=== PATIENT | female | born 1940 | race Caucasian/White ===

== ENCOUNTER 2018-05-15 03:19 | Outpatient (CLI) | payer MEDICARE ==
[~2018-05-15 03:19] MED LIST: ATOR10TA87 PO; CALC-103; CLIN300C85 PO; CYAN100087 PO; CYCL-1 PO; DENO60DI; GABA-532 PO; HYDR-565 PO; LEVO25TA2 PO; MULT-1085 PO; RAMI2.5C PO; TEMA30CA5 PO; VALS40TA2 PO
== END 2018-05-15 23:59 | disposition home or self-care (01) ==
LOC: DIABETIC 03:19
PROVIDERS: ATTEND Internal Medicine Critical Care Medicine
DX: Z71.3 Dietary counseling and surveillance (principal); E66.9 Obesity, unspecified
CPT/HCPCS: 97802

== ENCOUNTER 2018-07-21 11:15 | Outpatient (CLI) | payer MEDICARE, BC ==
[~2018-07-21 11:15] MED LIST changes: +HYDR-4353 PO; -HYDR-565 PO; -RAMI2.5C PO; +RAMI2.5C2 PO
[2018-07-21] MEDS ORDERED: FURO-150 PO (12:37)
== END 2018-07-21 12:48 | disposition home or self-care (01) ==
LOC: WOUND CARE 11:15
PROVIDERS: ATTEND Surgery
DX: L73.2 Hidradenitis suppurativa (principal)
CPT/HCPCS: 99215

== ENCOUNTER 2018-08-14 11:10 | Outpatient (CLI) | payer MEDICARE, BC ==
[~2018-08-14 11:10] MED LIST changes: -ATOR10TA87 PO; -CALC-103; -CLIN300C85 PO; +FURO-150 PO; -RAMI2.5C2 PO
== END 2018-08-14 12:37 | disposition home or self-care (01) ==
LOC: WOUND CARE 11:10
PROVIDERS: ATTEND Surgery
DX: L73.2 Hidradenitis suppurativa (principal); N18.9 Chronic kidney disease, unspecified; D63.1 Anemia in chronic kidney disease; D50.0 Iron deficiency anemia secondary to blood loss (chronic); E83.52 Hypercalcemia; Z87.891 Personal history of nicotine dependence
CPT/HCPCS: 99211; 99214

== ENCOUNTER 2018-08-14 12:52 | Outpatient (CLI) | payer MEDICARE, BC ==
[2018-08-14 15:12] LABS: ALANINE AMINOTRANSFERASE 13 U/L (12-78); ALBUMIN 3.3 G/DL (3.4-5.0); ALBUMIN/GLOBULIN RATIO 0.9 (1.1-1.5); ALKALINE PHOSPHATASE 62 IU/L (46-116); ANION GAP 4 (8-16); ASPARTATE AMINO TRANSFERASE 10 U/L (10-37); BILIRUBIN,TOTAL 0.2 MG/DL (0.1-1.0); BLOOD UREA NITROGEN 56 MG/DL (7-18); BUN/CREATININE RATIO 20.6 (6.6-38.0); CALCIUM 11.8 MG/DL (8.5-10.1); CHLORIDE 104 MMOL/L (99-107); CREATININE 2.72 MG/DL (0.40-0.90); GLUCOSE 107 MG/DL (70-104); POTASSIUM 4.9 MMOL/L (3.5-5.1); SODIUM 137 MMOL/L (135-145); eGFR 17 ML/MIN
[2018-08-14 15:46] LABS: CLARITY,URINE CLOUDY (Clear); COLOR,URINE YELLOW (Yellow); GLUCOSE, URINE NEGATIVE (Neg); KETONES,URINE NEGATIVE (Neg); LEUKOCYTE ESTERASE ,URINE MODERATE (Neg); NITRITES, URINE NEGATIVE (Neg); OCCULT BLOOD,URINE SMALL (Neg); PH,URINE 5.5 (4.8-8.0); PROTEIN,URINE 30 mg/dl (Neg); UROBILINOGEN,URINE 0.2 E.U/dL (0.2-1.0)
[2018-08-14 15:47] LABS: UA COLLECTION TYPE CLN CATCH MIDSTREAM
[2018-08-14 16:10] LABS: SQUAMOUS EPITHELIAL CELL,UR MODERATE /LPF (FEW); WBC,URINE TNTC /HPF (0-4)
[2018-08-14 16:16] LABS: BACTERIA,URINE 2+ /HPF (Neg); CAL OXALATE CRYSTALS 3+ /HPF (NEGATIVE)
[2018-08-15 14:13] LABS: PARATHYROID HORMONE 62.1 PG/ML (11-67)
[2018-08-18 07:30] LABS: A/G RATIO 1.1 (0.7-1.7); ALBUMIN 3.4 g/dL (2.9-4.4); BETA GLOBULIN 1.1 g/dL (0.7-1.3); GAMMA GLOBULIN 0.7 g/dL (0.4-1.8); M-SPIKE Not Observed g/dL (Not Observed); PROTEIN, TOTAL, SERUM 6.4 g/dL (6.0-8.5)
[2018-08-18 15:49] LABS: VITAMIN D, 25-HYDROXY 34.1 ng/mL (30.0-100.0)
== END 2018-08-14 23:59 | disposition home or self-care (01) ==
LOC: LAB 12:52
PROVIDERS: ATTEND Internal Medicine
DX: M32.10 Systemic lupus erythematosus, organ or system involvement unspecified (principal); D50.0 Iron deficiency anemia secondary to blood loss (chronic); D63.1 Anemia in chronic kidney disease; N18.9 Chronic kidney disease, unspecified; E83.52 Hypercalcemia; R79.89 Other specified abnormal findings of blood chemistry; F17.200 Nicotine dependence, unspecified, uncomplicated
CPT/HCPCS: 36415; 80053; 81001; 82232; 82306; 82330; 83970; 84155; 84165; 87088

== ENCOUNTER 2019-07-05 | Emergency (ER) | payer MEDICARE, BC ==
[~2019-07-05] VITALS: Ht 167.6 cm; Wt 68.2 kg
[~2019-07-05] MED LIST changes: +AMLO5TAB PO; +ATOR10TA PO; +CARV-49 PO; -CYAN100087 PO; -DENO60DI; -FURO-150 PO; -HYDR-4353 PO; +HYDR-4383 PO; +HYDR200T80 PO; -LEVO25TA2 PO; +LEVO75TA7 PO; -MULT-1085 PO; -TEMA30CA5 PO; -VALS40TA2 PO
[2019-07-05] MEDS ORDERED: normal saline 1000ML IV soln IV ONE (00:10)
[2019-07-05] MEDS ORDERED: acetaminophen 325mg tablet PO STA (00:43)
[2019-07-05 00:51] LABS: BASOPHILS % (AUTO) 0.6 % (0-1); EOSINOPHILS % (AUTO) 0.2 % (0-6); HEMATOCRIT 28.4 % (35.0-45.0); HEMOGLOBIN 9.8 g/dl (12.0-16.0); LYMPHOCYTES # (AUTO) 0.5 X10'3 (1.1-4.8); LYMPHOCYTES % (AUTO) 11.4 % (21-51); MEAN CORPUSCULAR HEMOGLOBIN 32.4 PG (27.0-31.0); MEAN CORPUSCULAR HGB CONC 34.6 g/dL (33.0-36.5); MEAN CORPUSCULAR VOLUME 93.6 FL (78-98); MEAN PLATELET VOLUME 7.6 FL (7.4-10.4); MONOCYTES # (AUTO) 0.4 X10'3 (0-0.9); MONOCYTES % (AUTO) 9.9 % (2-12); NEUTROPHILS # (AUTO) 3.2 X10'3 (1.8-7.7); NEUTROPHILS % (AUTO) 77.9 % (42-75); PLATELET COUNT 84 X10'3 (140-440); RED BLOOD COUNT 3.03 X10'6 (4.20-5.60); RED CELL DISTRIBUTION WIDTH 12.9 % (11.5-14.5); WHITE BLOOD COUNT 4.1 X10'3 (4.5-11.0)
[2019-07-05] MEDS ORDERED: ipratropium/albuterol 3ml nebule NEB ONE (00:55)
[2019-07-05 00:56] LABS: ALANINE AMINOTRANSFERASE 24 U/L (12-78); ALBUMIN/GLOBULIN RATIO 0.7 (1.1-1.5); ALKALINE PHOSPHATASE 66 IU/L (46-116); ANION GAP 9 (8-16); ASPARTATE AMINO TRANSFERASE 22 U/L (10-37); BILIRUBIN,TOTAL 0.3 MG/DL (0.1-1.0); BLOOD UREA NITROGEN 23 MG/DL (7-18); BUN/CREATININE RATIO 15.5 (6.6-38.0); CALCIUM 8.2 MG/DL (8.5-10.1); CHLORIDE 103 MMOL/L (99-107); CREATININE 1.48 MG/DL (0.40-0.90); GLUCOSE 110 MG/DL (70-104); MAGNESIUM 1.3 MG/DL (1.5-2.4); PARTIAL THROMBOPLASTIN TIME 32 SECONDS (22-32); POTASSIUM 4.5 MMOL/L (3.5-5.1); SODIUM 135 MMOL/L (135-145); TOTAL CARBON DIOXIDE 22.8 MMOL/L (24-32); TOTAL PROTEIN 7.2 G/DL (6.4-8.2); eGFR 34 ML/MIN
[2019-07-05] MEDS ORDERED: magnesium 2GM in 50ml NS 50 ML IV ONE (01:50)
[2019-07-05] MEDS ORDERED: levoFLOXACIN-Levaquin 500mg/D5 100 ML IV ONE (02:50)
[2019-07-05] MEDS ORDERED: normal saline 1000ML IV soln IVB ONE (03:05)
--- NOTE | 2019-07-05 03:10 | NUR ---
attempted to obtain UA sample with Kay CENTENO. pt brief was soaked, no urine obtained from bladder. will continue to monitor and re-attempt collection.
[2019-07-05 04:54] LABS: COLOR,URINE YELLOW (Yellow); GLUCOSE, URINE NEGATIVE (Neg); KETONES,URINE NEGATIVE (Neg); LEUKOCYTE ESTERASE ,URINE TRACE (Neg); NITRITES, URINE NEGATIVE (Neg); OCCULT BLOOD,URINE SMALL (Neg); PROTEIN,URINE 100 mg/dl (Neg); UROBILINOGEN,URINE 0.2 E.U/dL (0.2-1.0)
[2019-07-05 05:00] LABS: UA COLLECTION TYPE OTHER
[2019-07-05 05:01] LABS: CLARITY,URINE SLIGHTLY CLOUDY (Clear)
[2019-07-05 05:02] LABS: BACTERIA,URINE 1+ /HPF (Neg); RBC,URINE 0-2 /HPF (0-2); SQUAMOUS EPITHELIAL CELL,UR FEW /LPF (FEW); WBC,URINE 0-4 /HPF (0-4)
[2019-07-05 05:43] VITALS: BP 121/53
[2019-07-05] MEDS ORDERED: LEVO250T58 PO (05:51)
== END 2019-07-05 06:05 | disposition home or self-care (01) ==
LOC: ER 00:01
DX: J40 Bronchitis, not specified as acute or chronic (principal); N39.0 Urinary tract infection, site not specified; E03.9 Hypothyroidism, unspecified; Z90.710 Acquired absence of both cervix and uterus; Z98.890 Other specified postprocedural states; F17.200 Nicotine dependence, unspecified, uncomplicated; Z88.0 Allergy status to penicillin; Z91.09 Other allergy status, other than to drugs and biological substances; Z88.2 Allergy status to sulfonamides; Z88.1 Allergy status to other antibiotic agents; Z88.5 Allergy status to narcotic agent; Z88.8 Allergy status to other drugs, medicaments and biological substances; Z79.899 Other long term (current) drug therapy
CPT/HCPCS: 36415; 71045; 71250; 74176; 80053; 81001; 83605; 83735; 84145; 85025; 85610; 85730; 87040; 87088; 93005; 94640; 94760; 96365; 96366; 96368; 99284; J1956; J3475; J7030; J7040

== ENCOUNTER 2019-11-27 12:38 | Day surgery (SDC) | payer MEDICARE, OTHER ==
[2019-11-24 16:26] LABS: BASOPHILS % (AUTO) 0.7 % (0-1); EOSINOPHILS # (AUTO) 0.1 X10'3 (0-0.9); EOSINOPHILS % (AUTO) 1.7 % (0-6); LYMPHOCYTES # (AUTO) 1.7 X10'3 (1.1-4.8); LYMPHOCYTES % (AUTO) 26.3 % (21-51); MEAN CORPUSCULAR HEMOGLOBIN 33.3 PG (27.0-31.0); MEAN CORPUSCULAR VOLUME 95.1 FL (78-98); MEAN PLATELET VOLUME 7.4 FL (7.4-10.4); MONOCYTES # (AUTO) 0.7 X10'3 (0-0.9); MONOCYTES % (AUTO) 10.3 % (2-12); PRE OP PLATELET COUNT 160 X10'3 (140-440); RED BLOOD COUNT 3.15 X10'6 (4.20-5.60); RED CELL DISTRIBUTION WIDTH 12.7 % (11.5-14.5)
[2019-11-24 16:28] LABS: PRE OP HEMOGLOBIN 10.5 g/dL (12.0-16.0)
[2019-11-24 16:31] LABS: ALBUMIN 3.6 G/DL (3.4-5.0); ALBUMIN/GLOBULIN RATIO 0.9 (1.1-1.5); ALKALINE PHOSPHATASE 69 IU/L (46-116); BLOOD UREA NITROGEN 33 MG/DL (7-18); BUN/CREATININE RATIO 21.4 (6.6-38.0); CALCIUM 8.3 MG/DL (8.5-10.1); CHLORIDE 107 MMOL/L (99-107); CREATININE 1.54 MG/DL (0.40-0.90); PRE OP ALT 15 U/L (30-65); PRE OP ANION GAP 9 (8-16); PRE OP AST 17 U/L (10-37); PRE OP BILIRUB, TOTAL 0.3 MG/DL (0.0-1.0); PRE OP GLUCOSE 96 MG/DL (70-104); PRE OP POTASSIUM 4.5 MMOL/L (3.4-5.1); PRE OP SODIUM 139 MMOL/L (135-145); TOTAL CARBON DIOXIDE 22.8 MMOL/L (24-32); TOTAL PROTEIN 7.4 G/DL (6.4-8.2); eGFR 33 ML/MIN
[2019-11-27] VITALS (9 sets, daily range): BP systolic 121–150; BP diastolic 65–88
[~2019-11-27] VITALS: Ht 167.6 cm; Wt 69.9 kg
[~2019-11-27 12:38] MED LIST changes: +ASCO-134 PO; -CYCL-1 PO; +DOCUMENT DATE & TIME OF BETA-BLOCKER PO ONE; +FOLI0.4T14 PO; +FURO20TA4 PO; +GABA-530 PO; -GABA-532 PO; -HYDR-4383 PO; -LEVO75TA7 PO; +MELA10TA PO; +NITR100C11 PO; +cefazolin/dext.iso 2gm/100ml 100 ML IV ONE; +famotidine 20mg tablet PO ONE; +ringers solution, lacted 1,000 ML IV SCH
[2019-11-27] MEDS ORDERED: ondansetron/PF 4mg/2ml inj IV PRN (15:15)
[2019-11-27] MEDS ORDERED: proCHLORperazine 10 MG/2 ml inj IV PRN (15:15)
[2019-11-27] MEDS ORDERED: morphine 2 MG/ML inj. syringe IV PRN (15:15)
[2019-11-27] MEDS ORDERED: meperidine/PF 25mg/ml syringe IV PRN ×3 (15:15)
[2019-11-27] MEDS ORDERED: ringers solution, lacted 1,000 ML IV SCH (15:15)
[2019-11-27] MEDS ORDERED: morphine 4 MG/ML inj SYRINge IV PRN (15:15)
[2019-11-27] MEDS ORDERED: fentaNYL/PF 50MCG/1 ML 2ML syringe ONE (16:03)
[2019-11-27] MEDS ORDERED: midazolam 2 mg/2 ml injection ONE (16:03)
[2019-11-27] MEDS ORDERED: iohexol 300 MG/1 ML 10ml vial ONE (16:19)
[2019-11-27] MEDS ORDERED: LIDOcaine 2% (20mg/ml) 5ml vial ONE (16:27)
[2019-11-27] MEDS ORDERED: propofol inj 20 ML IV ONE (16:27)
[2019-11-27] MEDS ORDERED: dexamethasone sod phosphate 4mg/ml inj. ONE (16:29)
[2019-11-27] MEDS ORDERED: iohexol 300 MG/1 ML 50ml polymer ONE (16:45)
[2019-11-27] MEDS ORDERED: acetaminophen 1,000mg/100ml IV 100 ML IV ONE (17:21)
[2019-11-27] MEDS ORDERED: ondansetron/PF 4mg/2ml inj ONE (17:24)
--- NOTE | 2019-11-27 17:32 | NUR ---
Received from OR via SURGICAL BED , accompanied by Anesthesiologist KYRA and report given by Anesthesiolgist. PATIENT WITH WILSON CATHETER [address] WAY WITH IRRIGATION. DENIES PAIN, ONLY PRESSURE FROM WILSON CATHETER. 20G PIV IN LEFT UE RUNNING LR AT 100. 10L MASK ON WITH 99% SATURATIONS. Addendum: 11/27/19 at 1740 by Randolph Roldan RN, RN Amended: Links added.
--- NOTE | 2019-11-27 18:52 | NUR ---
ALL DC CRITERIA HAS BEEN MET. IV TAKEN OUT WITHOUT COMPLICATIONS. ALL INSTRUCTIONS COVERED AND ALL QUESTIONS ANSWERED. DRESSINGS CDI. OUT VIA WHEELCHAIR TO PERSONAL VEHICLE WHERE PATIENT WAS SECURED IN AND DRIVEN HOME BY FAMILY. PATIENT URINE IS CLEAR WITH A SLIGHT YELLOW TINGE. IRRIGATION STOPPED 30-40 MINS PRIOR TO DC. PLUGGED IRRIGATION INLET AND DEMONSTRATED PROPER DRAINAGE TECHNIQUE OF CATHETER. DECISION MADE TO USE WILSON CATHETER BAG 2' FACT THAT PATIENT DOES NOT PLAN ON GOING ANYWHERE AND WOULD PREFER TO USE CURRENT CATHETER BAG SYSTEM FOR ITS EASY OF USE AND ABILITY TO DRAIN. PATIENTS BROTHER AND FRIEND EDUCATED ON USE AND WERE PRESENT FOR ALL DISCHARGE INSTRUCTIONS. VSS. DENIES PAIN OR DISCOMFORT. AMBULATED TO WHEELCHAIR AND GOT INTO VEHICLE WITH SUPERVISION. CARE TURNED OVER TO FAMILY. SCRIPT INCLUDED IN DC PAPERWORK. Addendum: 11/27/19 at 1939 by Randolph Roldan RN RN Amended: Links added.
== END 2019-11-27 18:52 | disposition home or self-care (01) ==
LOC: PAS 12:38
PROVIDERS: ATTEND Urology
DX: C67.9 Malignant neoplasm of bladder, unspecified (principal); I12.9 Hypertensive chronic kidney disease with stage 1 through stage 4 chronic kidney disease, or unspecified chronic kidney disease; F17.210 Nicotine dependence, cigarettes, uncomplicated; I25.2 Old myocardial infarction; M06.9 Rheumatoid arthritis, unspecified; M19.90 Unspecified osteoarthritis, unspecified site; N18.3 Chronic kidney disease, stage 3 (moderate); D64.9 Anemia, unspecified; Z88.6 Allergy status to analgesic agent; Z88.0 Allergy status to penicillin; Z91.041 Radiographic dye allergy status; Z79.899 Other long term (current) drug therapy; Z98.51 Tubal ligation status; Z98.890 Other specified postprocedural states
CPT/HCPCS: 36415; 52235; 74420; 76000; 80053; 82948; 85025; C1758; J0131; J1100; J2001; J2175; J2250; J2405; J2704; J3010; J7120; Q9967; A4355; A4618; A6258; A7000

== ENCOUNTER 2020-06-23 20:36 | Emergency (ER) | payer MEDICARE, OTHER ==
[~2020-06-23] VITALS: Ht 167.6 cm; Wt 68.2 kg
[~2020-06-23 20:36] MED LIST changes: -DOCUMENT DATE & TIME OF BETA-BLOCKER PO ONE; -cefazolin/dext.iso 2gm/100ml 100 ML IV ONE; -famotidine 20mg tablet PO ONE; -ringers solution, lacted 1,000 ML IV SCH
[2020-06-23 21:23] LABS: BASOPHILS # (AUTO) 0.1 X10'3 (0-0.2); BASOPHILS % (AUTO) 0.7 % (0-1); EOSINOPHILS % (AUTO) 0.4 % (0-6); HEMOGLOBIN 9.7 g/dl (12.0-16.0); LYMPHOCYTES # (AUTO) 0.9 X10'3 (1.1-4.8); LYMPHOCYTES % (AUTO) 10.6 % (21-51); MEAN CORPUSCULAR HEMOGLOBIN 30.7 PG (27.0-31.0); MEAN CORPUSCULAR HGB CONC 33.3 g/dL (33.0-36.5); MEAN CORPUSCULAR VOLUME 92.1 FL (78-98); MONOCYTES % (AUTO) 12.2 % (2-12); NEUTROPHILS # (AUTO) 6.2 X10'3 (1.8-7.7); NEUTROPHILS % (AUTO) 76.1 % (42-75); PLATELET COUNT 154 X10'3 (140-440); RED BLOOD COUNT 3.15 X10'6 (4.20-5.60); RED CELL DISTRIBUTION WIDTH 15.2 % (11.5-14.5); WHITE BLOOD COUNT 8.1 X10'3 (4.5-11.0)
--- NOTE | 2020-06-23 21:35 | NUR ---
PER DAUGHTER, WHO PROVIDES REGULAR CARE: FELL TODAY AND LANDED ON KNEES, DENIES LOC OR HEAD INJURY. PER DAUGHTER SHE WAS AFEBRILE THIS AM. PER DAUGHTER HER WOUND HAS BEEN CLOSING UP WELL AND WOUND CARE HAS BEEN PROVIDED AROUND THE CLOCK AND SEES A WOUND CARE NURSE. DAUGHTER IS CONCERNED THAT SHE MAYBE HAS A URINARY INFECTION. SHE NO LONGER TAKES MACROBID.
--- NOTE | 2020-06-23 21:42 | NUR ---
DAUGHTER HOME NUMBER: [id number]
[2020-06-23 21:45] LABS: ALANINE AMINOTRANSFERASE 19 U/L (12-78); ALBUMIN 2.9 G/DL (3.4-5.0); ALBUMIN/GLOBULIN RATIO 0.7 (1.1-1.5); ALKALINE PHOSPHATASE 66 IU/L (46-116); ASPARTATE AMINO TRANSFERASE 11 U/L (10-37); BILIRUBIN,TOTAL 0.3 MG/DL (0.1-1.0); BLOOD UREA NITROGEN 37 MG/DL (7-18); BUN/CREATININE RATIO 24.8 (6.6-38.0); CALCIUM 9.1 MG/DL (8.5-10.1); CHLORIDE 102 MMOL/L (99-107); CREATININE 1.49 MG/DL (0.40-0.90); GLUCOSE 107 MG/DL (70-104); POTASSIUM 4.1 MMOL/L (3.5-5.1); SODIUM 133 MMOL/L (135-145); TOTAL PROTEIN 6.9 G/DL (6.4-8.2); eGFR 34 ML/MIN
[2020-06-23 21:49] LABS: ANION GAP 12 (8-16); TOTAL CARBON DIOXIDE 19.4 MMOL/L (24-32)
[2020-06-23 22:12] LABS: CLARITY,URINE CLOUDY (Clear); COLOR,URINE YELLOW (Yellow); GLUCOSE, URINE NEGATIVE (Neg); KETONES,URINE NEGATIVE (Neg); LEUKOCYTE ESTERASE ,URINE LARGE (Neg); NITRITES, URINE POSITIVE (Neg); OCCULT BLOOD,URINE MODERATE (Neg); PROTEIN,URINE 100 mg/dl (Neg); UROBILINOGEN,URINE 0.2 E.U/dL (0.2-1.0)
[2020-06-23 22:13] LABS: UA COLLECTION TYPE NON-SPECIFIED
[2020-06-23 22:17] LABS: BACTERIA,URINE 2+ /HPF (Neg); SQUAMOUS EPITHELIAL CELL,UR FEW /LPF (FEW); WBC,URINE TNTC /HPF (0-4)
[2020-06-24] MEDS ORDERED: CIPR-230 PO (00:22)
[2020-06-24] MEDS ORDERED: ciprofloxacin 250mg tablet PO ONE (00:25)
--- NOTE | 2020-06-24 00:39 | NUR ---
DAUGHTER LARISSA CALLED TO COME BAGGAGE CHECKER DAUGHTER. DISCHARGED INSTRUCTIONS REVIEWED WITH DAUGHTER WITH UNDERSTANDING
[2020-06-24 00:40] VITALS: BP 130/92
== END 2020-06-24 01:20 | disposition home or self-care (01) ==
LOC: ER 20:36
DX: N39.0 Urinary tract infection, site not specified (principal); N13.30 Unspecified hydronephrosis; E03.9 Hypothyroidism, unspecified; Z90.710 Acquired absence of both cervix and uterus; Z98.890 Other specified postprocedural states; Z88.0 Allergy status to penicillin; Z88.2 Allergy status to sulfonamides; Z88.8 Allergy status to other drugs, medicaments and biological substances; Z79.899 Other long term (current) drug therapy
CPT/HCPCS: 36415; 71045; 74176; 80053; 81001; 83605; 84145; 84484; 85025; 87040; 87077; 87088; 87186; 93005; 99285